=== PATIENT | female | born 1940 | race Caucasian/White ===

== ENCOUNTER 2016-04-13 00:25 | Emergency (ER) | payer OTHER, BC ==
[2016-04-13 01:42] VITALS: BP 165/105; PULSE 73; TEMP 97.5; BMI 22.2
[2016-04-13] MEDS ORDERED: diphenhydrAMINE HCL 25 MG CAPSULE (FP) PO ONE ×2 (02:02→02:07)
--- NOTE | 2016-04-13 02:02 | PDOC ---
History of Present Illness - General History Source: Patient <Neptali Ackerman - Last Filed: 04/13/16 02:04> - General History Source: Patient Exam Limitations: No Limitations - History of Present Illness Initial Comments: 04/13/16 02:10 The patient is a 75 year old female, with a significant past medical history o f hypertension, hyperlipidemia, hypothyroidism, TIA, and hypokalemia, who presents to the emergency department complaining of left upper lip swelling and left cheek swelling since approximately 22:30 last night. The patient reports the edema initially began in her left upper lip. She reports icing the region, with mild relief of swelling. She states she then noticed the swelling in her left cheek. She reports she assumed these symptoms were associated with her blood pressure and subsequently measured her b.p. She reports her systolic initially read 202, but does not recall the diastolic. After a second systolic reading at 197, she reports she decided to present to the ED for further evaluation. The patient denies any dietary changes or new exposures. The patient reports her only recent change was from the medication atorvastatin to simvastatin approximately 3 weeks ago. The patient denies any difficulty breathing, swallowing, fever, chills, cough, headache, or dizziness. The patient denies any nausea, vomiting, diarrhea, or constipation. The patient denies any chest pain, palpitations, diaphoresis, or shortness of breath. The patient denies any recent travel or sick contacts. The patient reports she is on aspirin. Allergies: None reported. Past Surgical History: None reported. Social History: Non-smoker. Denies alcohol or drug use. PCP: Dr. Judd Abarca <Robin Ellsworth - Last Filed: 04/13/16 02:17> - General Chief Complaint: Blood Pressure Problem Stated Complaint: BLOOD PRESSURE PROBLEM Time Seen by Provider: 04/13/16 01:19 Past History - Past Medical History HTN: Yes Hypercholesterolemia: Yes - Psycho/Social/Smoking Cessation Hx Suicidal Ideation: No Smoking History: Never smoked Have you smoked in the past 12 months: No Number of Cigarettes Smoked Daily: 0 Information on smoking cessation initiated: No Hx Alcohol Use: No Drug/Substance Use Hx: No Substance Use Type: None Hx Substance Use Treatment: No <Neptali Ackerman - Last Filed: 04/13/16 02:04> <Robin Ellsworth - Last Filed: 02/16/17 02:17> - Past Medical History Allergies/Adverse Reactions: Allergies Allergy/AdvReac Type Severity Reaction Status Date / Time No Known Allergies Allergy Verified 04/13/16 00:35 Home Medications: Ambulatory Orders Amlodipine Besylate 5 mg PO DAILY 05/09/15 Aspirin [ASA -] 81 mg PO DAILY 05/09/15 Calcium/D3/Mag Ox/General Office Dispatcher/Elmer/Zn [Caltrate+D3 Plus Mineral [place]] 1 tab PO DAILY Levothyroxine [Synthroid -] 100 mcg PO DAILY 05/09/15 Furosemide [Lasix -] 20 mg PO DAILY #30 tablet 05/10/15 Potassium Chloride [K-Dur -] 10 meq PO DAILY #30 tablet.er 05/10/15 Simvastatin 20 mg PO HS 04/13/16 Review of Systems - Review of Systems Able to Perform ROS?: Yes Comments:: 04/13/16 02:12 CONSTITUTIONAL: Absent: fever, no chills, no fatigue HEENT: Present: +left upper lip swelling, +left cheek swelling Absent: rhinorrhea, nasal congestion, throat pain, throat swelling, difficulty swallowing, ear pain, eye pain, visual changes CARDIOVASCULAR: Absent: chest pain, no palpitations RESPIRATORY: Absent: cough, shortness of breath, dyspnea with exertion, orthopnea, wheezing, stridor, hemoptysis GI: Absent: abdominal pain, no nausea, no vomiting, no constipation, no diarrhea GENITOURINARY: Absent: dysuria, no frequency, no hematuria MUSKULOSKELETAL: Absent: back pain, no arthralgia, no myalgia SKIN: Absent: rash NEURO: Absent: headache <Robin Ellsworth - Last Filed: 04/13/16 02:17> *Physical Exam - Vital Signs Last Vital Signs Temp Pulse Resp BP Pulse Ox 97.5 F L 73 14 165/105 96 04/13/16 00:35 04/13/16 00:35 04/13/16 00:35 04/13/16 00:35 04/13/16 00:35 <Neptali Ackerman - Last Filed: 04/13/16 02:04> - Vital Signs Last Vital Signs Temp Pulse Resp BP Pulse Ox 97.5 F L 73 14 165/105 96 04/13/16 00:35 04/13/16 00:35 04/13/16 00:35 04/13/16 00:35 04/13/16 00:35 - Physical Exam Comments: 04/13/16 02:13 GENERAL: Well-appearing, well-nourished. No apparent distress. HEENT: Normocephalic, atraumatic. PERRL, EOM intact. Residual left upper lip and left cheek edema. CARDIOVASCULAR: Normal S1, S2. Regular rate and rhythm. PULMONARY: No evidence of respiratory distress. Lungs clear to auscultation bilaterally. No wheezing, rales or rhonchi. No stridor. ABDOMEN: Soft, non-distended, non-tender. EXTREMITIES: Normal ROM in all four extremities. No gross deformities. SKIN: Warm, dry. No rash NEUROLOGICAL: No focal neurological deficits. <Robin Ellsworth - Last Filed: 04/13/16 02:17> ED Treatment Course - Medications Given in the ED: ED Medications Discontinued Medications Generic Name Dose Route Start Last Admin Trade Name Freq PRN Reason Stop Dose Admin Diphenhydramine HCl 25 mg 04/13/16 02:02 04/13/16 02:09 Benadryl - PO 04/13/16 02:03 25 mg ONCE ONE Administration <Robin Ellsworth - Last Filed: 04/13/16 02:17> Medical Decision Making - Medical Decision Making 04/13/16 02:04 Dr. Ackerman: The scribe's documentation has been prepared under my direction and personally reviewed by me in its entirery. I confirm that the note above accurately reflects all work, treatment, procedures, and medical decision making performed by me. <Neptali Ackerman - Last Filed: 04/13/16 02:04> *DC/Admit/Observation/Transfer - Discharge Dispostion Admit: No <Neptali Ackerman - Last Filed: 04/13/16 02:04> - Attestations Scribe Attestion: 04/13/16 02:17 Documentation prepared by Robin Ellsworth, acting as medical file clerk for Neptali Ackerman DO. <Robin Ellsworth - Last Filed: 04/13/16 02:17> Diagnosis at time of Disposition: Swollen upper lip Allergic reaction Qualifiers: Encounter type: initial encounter Qualified Code(s): T78.40XA - Allergy, unspecified, initial encounter - Discharge Dispostion Disposition: HOME Condition at time of disposition: Stable - Referrals Referrals: Judd Abarca MD [Primary Care Provider] - - Patient Instructions Printed Discharge Instructions: DI for General Allergic Reactions Additional Instructions: follow-up with your primary care physician tomorrow
== END 2016-04-13 02:29 | disposition home or self-care (01) ==
LOC: JER 00:25
DX: T78.40XA Allergy, unspecified, initial encounter (principal); I10 Essential (primary) hypertension; E78.00 Pure hypercholesterolemia, unspecified; E03.9 Hypothyroidism, unspecified; Z86.73 Personal history of transient ischemic attack (TIA), and cerebral infarction without residual deficits
CPT/HCPCS: 99281-25

== ENCOUNTER 2021-02-22 14:32 | Emergency (ER) | payer OTHER, BC ==
[2021-02-22 15:03] VITALS: BP 134/73; PULSE 92; TEMP 98.4; BMI 22.0
[2021-02-23 23:06] LABS: SARS-CoV-2 NAA Not Detected (Not Detected)
== END 2021-02-22 17:22 | disposition home or self-care (01) ==
LOC: JER 14:32
DX: R05.9 Cough, unspecified (principal)
CPT/HCPCS: 71046-TC-FY; 87804; 99284-25; C9803; U0003; U0005

== ENCOUNTER 2023-09-07 10:09 | Emergency (ER) | payer OTHER, BC ==
[2023-09-07 10:17] VITALS: BP 146/69; PULSE 82; RESP 18; TEMP 98.3; BMI 23.9
[2023-09-07] MEDS ORDERED: MECLIZINE HCL 25 MG TABLET (FP) ONE (11:47)
[2023-09-07] MEDS ORDERED: ACETAMINOPHEN 325 MG TABLET (FP) ONE (11:47)
[2023-09-07] MEDS ORDERED: METOCLOPRAMIDE HCL INJECTION 10 MG/2 ML VIAL ONE (11:48)
[2023-09-07] MEDS: ACETAMINOPHEN 325 MG TABLET (FP) PO ONE (12:02)
[2023-09-07] MEDS: SODIUM CHLORIDE 500 ML IV STA (12:02)
[2023-09-07] MEDS: MECLIZINE HCL 25 MG TABLET (FP) PO ONE (12:02)
[2023-09-07] MEDS: METOCLOPRAMIDE HCL INJECTION 10 MG/2 ML VIAL IVPUSH ONE (12:02)
[2023-09-07 12:26] LABS: BASO % 0.7 % (0-2.0); EOS % 3.1 % (0-4.5); HEMOGLOBIN 14.1 GM/dL (10.7-15.3); LYMPH % 25.3 % (8-40); MCH 29.5 pg (25.7-33.7); MCHC 33.5 g/dl (32.0-36.0); MEAN CELL VOLUME 88.1 fl (80-96); MEAN PLT VOLUME 8.5 fl (7.5-11.1); MONO % 12.5 % (3.8-10.2); NEUT % 58.4 % (42.8-82.8); PLATELET COUNT 225 10^3/uL (134-434); RBC 4.76 M/mm3 (3.60-5.2); RDW 13.6 % (11.6-15.6); WHITE BLOOD COUNT 3.7 K/mm3 (4.0-10.0)
[2023-09-07 12:56] LABS: CALCIUM 9.1 mg/dL (8.5-10.1)
[2023-09-07 12:57] LABS: ALBUMIN 3.8 g/dl (3.4-5.0); BLOOD UREA NITROGEN 13.5 mg/dL (7-18); MAGNESIUM 2.6 mg/dL (1.8-2.4)
[2023-09-07 12:59] LABS: CREATININE 0.9 mg/dL (0.55-1.3)
[2023-09-07 13:01] LABS: BILIRUBIN,TOTAL 0.4 mg/dL (0.2-1); TOT PROT 7.6 g/dl (6.4-8.2)
== END 2023-09-07 15:03 | disposition home or self-care (01) ==
LOC: JER 10:09
PROC: 3E033GC Introduction of Other Therapeutic Substance into Peripheral Vein, Percutaneous Approach (ICD-10-PCS; principal; 2023-09-07)
PROC: 3E0337Z Introduction of Electrolytic and Water Balance Substance into Peripheral Vein, Percutaneous Approach (ICD-10-PCS; 2023-09-07)
DX: I10 Essential (primary) hypertension (principal); R42 Dizziness and giddiness; R05.9 Cough, unspecified
CPT/HCPCS: 36415; 70450-TC; 80053; 83690; 83735; 84484; 85025; 93005; 93010; 99285-25